=== PATIENT | male | born 1970 | race Caucasian/White ===

== ENCOUNTER → 2018-11-05 | Outpatient (CLI) | payer BC ==
--- NOTE | 2018-11-05 10:10 | US ---
EXAMINATION TYPE: US liver DATE OF EXAM: 11/05/2018 COMPARISON: NONE CLINICAL HISTORY: 48-year-old male R74.8 ABN LIVER ENZYMES. NPO, abnormal labs TECHNIQUE: Multiple sonographic images of the right upper quadrant are obtained. FINDINGS: EXAM MEASUREMENTS: Liver Length: 19.2 cm Gallbladder Wall: 0.2 cm CBD: 0.6 cm Right Kidney: 11.0 x 4.9 x 6.2 cm Pancreas: Tail obscured by overlying bowel gas. Appears echogenic in appearance Liver: Echogenic and attenuating. Appears coarse in appearance. Large and thoracic area of fatty spa ring along the gallbladder fossa. Gallbladder: wnl Evidence for sonographic Ribera's sign: neg CBD: wnl Right Kidney: wnl IMPRESSION: Hepatomegaly (19.2 cm) with at least moderate hepatic steatosis. Large area of geographic fatty spari ng along the gallbladder fossa.
== END | disposition home or self-care (01) ==
LOC: RADUSWWP 09:19
PROVIDERS: ATTEND Internal Medicine
DX: K76.0 Fatty (change of) liver, not elsewhere classified (principal); R16.0 Hepatomegaly, not elsewhere classified
CPT/HCPCS: 76705

== ENCOUNTER → 2020-06-25 | Outpatient (CLI) | payer BC | END | disposition home or self-care (01) | LOC: LABWHC1 15:30 | PROVIDERS: ATTEND Surgery | DX: Z20.822 Contact with and (suspected) exposure to COVID-19 (principal) | CPT/HCPCS: U0003; C9803; U0005 ==

== ENCOUNTER 2020-07-03 09:18 | Day surgery (SDC) | payer BC ==
[2020-06-30 14:44] VITALS: BMI 34.8
[~2020-07-03 09:18] MED LIST: LACTATED RINGERS 1,000 ML IV SCH; LIDOCAINE 1% (10MG/ML) FOR IV START INTRADERMA PRN
[2020-07-03 09:56] VITALS: TEMP 97.1
[2020-07-03] MEDS ORDERED: LIDOCAINE 1% (10MG/ML) FOR IV START INTRADERMA ONE (09:56)
[2020-07-03] MEDS ORDERED: LIDOCAINE 1% INJ 10MG/ML (20 ML MDV) ONE (10:08)
[2020-07-03] MEDS ORDERED: PROPOFOL 10 MG/ML 20 ML VIAL IV ONE (10:08)
--- NOTE | 2020-07-03 10:40 | P.PCN ---
Date of Procedure: 07/03/20 Preoperative Diagnosis: Screening Postoperative Diagnosis: Internal hemorrhoids Procedure(s) Performed: Colonoscopy Anesthesia: MAC Surgeon: Claire Amos Pathology: none sent Condition: stable Disposition: same day Indications for Procedure: 49-year-old male presents today for screening colonoscopy. Risks, benefits and alternatives were provided to the patient. He did provide consent prior to attending the endoscopy suite. Operative Findings: Overall, normal colon Internal hemorrhoids Description of Procedure: The patient was brought to the endoscopy suite and placed in left lateral decubitus position and adequate the patient was achieved using conscious sedation. A digital rectal exam was performed and mild internal hemorrhoids palpated. An endoscope was then placed in the rectum and advanced to the cecum as identified by landmarks including the appendiceal orifice and the ileocecal valve. The prep was good. The colonoscope was then slowly withdrawn, examining for any mucosal abdomen values. The cecum, ascending, transverse, descending and sigmoid colon were visualized adequately. There were no obvious neoplastic lesions throughout the colon. There were no obvious polyps noted throughout the colon. There is no evidence of diverticulosis. Retroflexion was performed in the rectum and internal hemorrhoids were visible. Excess air was removed, the colonoscope withdrawn and the procedure terminated. The patient was then transferred to the recovery unit in stable condition. Repeat colonoscopy should be performed in 8 years
[2020-07-03 11:01] VITALS: BP 128/82; PULSE 72; RESP 20
== END 2020-07-03 11:13 | disposition home or self-care (01) ==
LOC: ORWHC2ENDO 09:18
PROVIDERS: ATTEND Surgery
DX: Z12.11 Encounter for screening for malignant neoplasm of colon (principal); K64.8 Other hemorrhoids; E78.5 Hyperlipidemia, unspecified; Z80.0 Family history of malignant neoplasm of digestive organs; I10 Essential (primary) hypertension; E78.00 Pure hypercholesterolemia, unspecified; Z80.1 Family history of malignant neoplasm of trachea, bronchus and lung; Z79.899 Other long term (current) drug therapy; Z79.82 Long term (current) use of aspirin
CPT/HCPCS: J2001; J2704; G0121; 45378

== ENCOUNTER → 2024-04-16 | Outpatient (CLI) | payer MEDICAID ==
--- NOTE | 2024-04-17 08:44 | MR ---
EXAMINATION TYPE: MR lumbar spine wo con DATE OF EXAM: 04/16/2024 8:47 PM COMPARISON: None. CLINICAL INDICATION: Male, 53 years old with history of M54.16, M54.50, low back pain that radiates d own into both buttocks and back of both thighs TECHNIQUE: Multiplanar, multisequence images of the lumbar spine were acquired. IV Contrast: mL (None, if empty) FINDINGS: Cord ends at the L1-L2 level. L5-S1: No focal disc herniation or significant disc bulge. No spinal canal stenosis. Neural foramen are patent. Facet hypertrophy is present. L4-L5: Central focal bulge is present with mild anterior thecal sac compression. Some central endplat e spurring may be present from L5. Ligamentum flavum laxity is present. Spinal canal narrowing is pre sent through this level. Minimal spondylolisthesis is present with disc uncovering. Small annular tea r may be present. Severe right foraminal stenosis is present. L3-L4: No focal disc herniation or significant disc bulge. No spinal canal stenosis. Neural foramen are patent. L2-L3: No focal disc herniation or significant disc bulge. No spinal canal stenosis. Neural foramen are patent. L1-L2: No focal disc herniation or significant disc bulge. No spinal canal stenosis. Neural foramen are patent. T12-L1: No focal disc herniation or significant disc bulge. No spinal canal stenosis. Neural forame n are patent. IMPRESSION: 1. Minimal grade 1 spondylolisthesis of L4 anteriorly on L5. 2. Some L4-5 disc bulging with some mild central protrusion and possible endplate spurring is mild to moderate anterior thecal sac compression. Annular tear at L4-5 may be present. 3. Severe right foraminal stenosis L4-5. Correlate with radicular symptoms [facility], , 04/17/2024 8:41 AM
== END | disposition home or self-care (01) ==
LOC: RADMRIMAIN 20:15
PROVIDERS: ATTEND Orthopaedic Surgery
DX: M43.16 Spondylolisthesis, lumbar region (principal); M51.16 Intervertebral disc disorders with radiculopathy, lumbar region; M48.061 Spinal stenosis, lumbar region without neurogenic claudication; M99.73 Connective tissue and disc stenosis of intervertebral foramina of lumbar region
CPT/HCPCS: 72148

== ENCOUNTER → 2024-04-25 | Outpatient (CLI) | payer MEDICAID ==
[2024-04-25 12:38] VITALS: BP 164/95; PULSE 79; RESP 16; TEMP 97.1
--- NOTE | 2024-04-25 12:43 | P.PAINCN ---
History of Present Illness - Reason for Consult Consult date: 04/25/24 - History of Present Illness This 53 years old male with a chronic history of severe low back pain with radiation to the lower extremity, patient denies any initiating event patient reported that the pain radiated to the posterior aspect of the lower extremity up to the knee area he denies any numbness or tingling and he denies any fever or night sweats he denies any change in the bowel movement or urination, pain increased with standing position, he was evaluated by Dr. Estrada send and prescribe prednisone and Flexeril, reported that his symptoms improved since he was started on this medication Past Medical History Past Medical History: Hyperlipidemia, Hypertension, Liver Disease Additional Past Medical History / Comment(s): fatty liver, History of Any Multi-Drug Resistant Organisms: None Reported Additional Past Surgical History / Comment(s): lymph node biopsy Past Anesthesia/Blood Transfusion Reactions: No Reported Reaction Smoking Status: Never smoker - Past Family History Father Family Medical History: Cancer Medications and Allergies Home Medications Medication Instructions Recorded Confirmed Type Aspirin [Adult Low Dose Aspirin EC] 81 mg PO HS 06/30/20 07/03/20 History Rosuvastatin Calcium [Crestor] 10 mg PO HS 06/30/20 07/03/20 History lisinopriL [Prinivil] 10 mg PO DAILY 06/30/20 07/03/20 History Allergies Allergy/AdvReac Type Severity Reaction Status Date / Time No Known Allergies Allergy Verified 07/03/20 09:43 Physical Exam Physical Examinations : -Constitutiona : Cooperative , not in acute distress . -HEENT : nech : supple , no Lymphadenopathy , normal thyroid size . : eyes : no ptosis , no icterus, no photophobia . - neurologic : Cranial nerve II to XII intact , no focal neurological deffecit . -psychatric : alert , oriented X 3 , appropriate affect , intact judgment and insight . -Lymphatic : no Lymphadenopathy . - musculoskeltal : Lumber spine moter stegnth lower extremities ,thigh and legs 5/5 Right side , 5/5 Left side deep tendon reflexes : normal Knee Jerk , normal ankle Jerk lumber facet Loading Test = negative right , negative left Range of motion of the lumbar spine Flexion 60 degrees, extension 30 degrees strait leg raising test = negative bilaterally Fabere test= negative right , and n egative LT . Normal sensation in the lower extremity bilaterally Results Comments: MRI of the lumbar spine that showed that patient had central focal bulging disc at L4-5 and there is spinal canal narrowing and there is spondylolisthesis there is small annular tear at L4-5 and severe right foraminal stenosis at L5-S1 this facet joint hypertrophy Assessment and Plan Assessment: Assessment and plan= chronic low back pain secondary to =1-lumbar degenerative disc disease. 2- lumbar spondylosis with lumbar facet arthropathy . 3-Lumbar spinal stenosis, at L4-5, 4- lumbar foraminal stenosis at L4-5 Patient reports that his symptoms improved significantly since he started on the prednisone, and Flexeril Exam today was completely negative for any abnormalities. Because patient had no pain over the last few days, and because the exam was negative completely. I will not schedule patient for any interventions. Option is to reevaluate the patient condition in few weeks, he continued to be pain- free then we do not have to do any interventions, twice will address any pain related issues in the future after reexamining the patient, patient will follow-up with the pain clinic in 2 to 3 weeks Time with Patient: Less than 30 PQRS Measure Charge Sheet Home Medications: Ambulatory Orders Aspirin [Adult Low Dose Aspirin EC] 81 mg PO HS 06/30/20 Rosuvastatin Calcium [Crestor] 10 mg PO HS 06/30/20 lisinopriL [Prinivil] 10 mg PO DAILY 06/30/20
== END ==
LOC: PNWHC3 12:03
PROVIDERS: ATTEND Specialist
DX: M47.816 Spondylosis without myelopathy or radiculopathy, lumbar region (principal); M48.061 Spinal stenosis, lumbar region without neurogenic claudication; M51.360 Other intervertebral disc degeneration, lumbar region with discogenic back pain only; G89.29 Other chronic pain
CPT/HCPCS: 99211

== ENCOUNTER → 2024-05-09 | Outpatient (CLI) | payer MEDICAID ==
[2024-05-09 12:41] VITALS: BP 138/83; PULSE 94; RESP 18; TEMP 97.6
--- NOTE | 2024-05-09 13:14 | P.PAINCN ---
History of Present Illness - History of Present Illness This is a 53-year-old pleasant gentleman has come to pain clinic for low back pain. Patient relates patient started to have low back pain starting about 3 to 4 months back without apparent trauma or fall. Pain is located in low back going down bilaterally to thigh areas up to his knees. Describes his pain as burning in character. Intensity goes up to 8-9/10. Usually standing and extending back makes his pain worse. Sitting for some time makes his pain a little tolerable. Denies any bowel bladder dysfunction. Denies any motor weakness except 1 time for his second he felt his left ankle got weak. Patient also complains of some loss of sensation in his feet bilaterally. Past Medical History Past Medical History: Hyperlipidemia, Hypertension, Liver Disease Additional Past Medical History / Comment(s): fatty liver, History of Any Multi-Drug Resistant Organisms: None Reported Additional Past Surgical History / Comment(s): lymph node biopsy Past Anesthesia/Blood Transfusion Reactions: No Reported Reaction Past Psychological History: No Psychological Hx Reported Smoking Status: Never smoker Past Alcohol Use History: Occasional Past Drug Use History: None Reported - Past Family History Father Family Medical History: Cancer Medications and Allergies Home Medications Medication Instructions Recorded Confirmed Type Aspirin [Adult Low Dose Aspirin EC] 81 mg PO HS 06/30/20 04/25/24 History Rosuvastatin Calcium [Crestor] 10 mg PO HS 06/30/20 04/25/24 History lisinopriL [Prinivil] 10 mg PO DAILY 06/30/20 04/25/24 History Cyclobenzaprine [Flexeril] 5 mg PO TID 04/25/24 04/25/24 History predniSONE [Deltasone] 20 mg PO BID 04/25/24 04/25/24 History Allergies Allergy/AdvReac Type Severity Reaction Status Date / Time No Known Allergies Allergy Verified 07/03/20 09:43 Physical Exam Vitals: Vital Signs Temp Pulse Resp BP Pulse Ox 05/09/24 12:38 97.6 F 94 18 138/83 97 Intake and Output 05/08/24 05/09/24 05/09/24 22:59 06:59 14:59 Other: Weight 120.202 kg Physical Examinations : -Constitutiona : Cooperative , not in acute distress . -HEENT : nech : supple , no Lymphadenopathy , normal thyroid size . : eyes : no ptosis , no icterus, no photophobia . - neurologic : Cranial nerve II to XII intact , no focal neurological deffecit . -psychatric : alert , oriented X 3 , appropriate affect , intact judgment and insight . -Lymphatic : no Lymphadenopathy . - musculoskeltal : Lumber spine moter stegnth lower extremities ,thigh and legs 5/5 Right side , 5/5 Left side deep tendon reflexes : normal Knee Jerk , normal ankle Jerk lumber facet Loading Test =positive Right , positive Left Range of motion of the lumbar spine Flexion 30 degrees, extension 10 degrees strait leg raising test = negative. Assessment and Plan Assessment: 1. Lumbar spine spondylosis L4-5, L5-S1 levels. 2. Grade 1 anterolisthesis L4-5 3. Lumbar radiculopathy. 4. Lumbar spinal stenosis. Plan: Schedule diagnostic lumbar medial branch block targeting the facet joints L4-5 and L5-S1 bilaterally. Discussed with the patient procedure, possible complications which may include infection, bleeding, nerve damage, aggravation of pain all of which could be permanent. Patient understands and all questions were answered. Time with Patient: Greater than 30 PQRS Measure Charge Sheet Mode of Arrival: Ambulatory - Pain Location Lower Back Non-Pharmacological Interventions: Sitting PQRS Narrative: Blood Pressure 138/83 Pain Intensity [Lower Back] 7 Scale Used Numeric (1 - 10) Hx Alcohol Use (MH) No Home Medications: Ambulatory Orders Aspirin [Adult Low Dose Aspirin EC] 81 mg PO HS 06/30/20 Rosuvastatin Calcium [Crestor] 10 mg PO HS 06/30/20 lisinopriL [Prinivil] 10 mg PO DAILY 06/30/20 Cyclobenzaprine [Flexeril] 5 mg PO TID 04/25/24 predniSONE [Deltasone] 20 mg PO BID 04/25/24
== END ==
LOC: PNWHC3 12:13
PROVIDERS: ATTEND Specialist
DX: M47.27 Other spondylosis with radiculopathy, lumbosacral region (principal); M43.16 Spondylolisthesis, lumbar region; M48.061 Spinal stenosis, lumbar region without neurogenic claudication
CPT/HCPCS: 99211

== ENCOUNTER 2024-05-28 12:16 | Day surgery (SDC) | payer MEDICAID ==
[2024-05-24 15:23] VITALS: BMI 36.9
[2024-05-28] MEDS ORDERED: LACTATED RINGERS 1,000 ML IV SCH (12:35)
[2024-05-28 12:37] VITALS: TEMP 97.9
[2024-05-28] MEDS: IV FLUID CONTINUATION 1,000 ML IV ONE (12:44)
[2024-05-28] MEDS ORDERED: fentaNYL (PF) 50 MCG/ML 2 ML AMP ONE (13:13)
[2024-05-28] MEDS ORDERED: MIDAZOLAM 2 MG/2 ML VIAL ONE (13:13)
[2024-05-28] MEDS ORDERED: ROPIVACAINE 5MG/ML 20ML VIAL ONE (13:13)
--- NOTE | 2024-05-28 13:29 | P.PCN ---
Date of Procedure: 05/28/24 Procedure(s) Performed: PREOPERATIVE DIAGNOSIS : 1- Lumbar spondylosis with Facet Arthropathy without myelopathy . 2- Lumber degenerative disc disease POSTOPERATIVE DIAGNOSIS: 1- Lumbar spondylosis with Facet Arthropathy without myelopathy . 2- Lumber degenerative disc disease PROCEDURE: Diagnostic bilateral L3 ,L4 , L5 medial branch block under fluoroscopy guidance(fluoroscopy images available in the radiology Department ) ( To target the facet joint between Bilateral L4-5 , and L5-S1 )#1st ANESTHESIA: moderate sedation with intravenous Versed 2 mg and Fentanyl 50 mcg.(sedation start time 13:13 ,end time 13:24 ) EBL: Minimal COMPLICATION: None PROCEDURE INDICATION: Chronic low back pain secondary to Facet arthropathy unresponsive to conservative treatment. PROCEDURE DESCRIPTION: the patient was seen and identified in the preop holding area , risks and benefits and possible complications of the procedure and alternative were discussed with the patient, and the patient agreed to proceed with the procedure and signed the consent and vital signs monitored during the procedure and fluoroscopy was used to maximize the benefit and accuracy of the needle placement, and sedation was given to decrease patient anxiety, patient was taken to the procedure room and placed in prone position vital signs monitored in the back prepped with chlorhexidine X3 then under strict sterile technique using a right oblique fluoroscopy ,the junction of the transverse process and the superior articulating process of the right L3 , L4 , and L5 vertebra which corresponding to the fluoroscopy image of the eye of the Thomas dog on the block side for the medial branches and subsequently , after local infiltration of skin and subcu tissuies with Ropivacaine 0.5 % , one mL at each level ,then 22-gauge 5 inches long Quincke-type needles , 3 needle was used , each one of them placed at the junction of the base of the transverse process and the superior articular process at the appropriate level, and the needle was advanced until the periosteum contacted, needle placement confirmed with AP oblique and lateral view and after appropriate needle placement confirmed, and after negative aspiration for heme and CSF and there was no paresthesia 1-1/2 mL of Ropivacaine 0.5% , then half mL injected at each level after negative aspiration the needle subsequently removed and the same procedure repeated for the left side at left side at L3 , L4 and L5 levels. At the end of the procedure and the needles removed and a bandage applied after the skin was cleaned the cleaning solution patient taken to recovery room in stable condition and monitors in the recovery room for 20-30 minutes and discharged home in stable condition after discharge criteria met and patient will follow up with the pain clinic in 2-4 weeks
[2024-05-28] MEDS: IV FLUID CONTINUATION 700 ML IV ONE (13:31)
--- NOTE | 2024-05-28 13:40 | FL ---
EXAMINATION TYPE: FL guided pain mgmt statistic DATE OF EXAM: 05/28/2024 CLINICAL INDICATION: Male, 53 years old with history of M54.16 ART LUM FB; [facility], TECHNIQUE: Fluoroscopy. COMPARISON: None. FINDINGS: Fluoroscopic guidance was provided during pain relief procedure performed by Dr. Del Real . A total of 27.8 seconds of fluoroscopic time was utilized during the procedure and 4 spot images a re acquired. Images acquired shows needle localization at several levels in the lower lumbar spine. Mild multilevel degenerative changes are present. Total DAP: 0.86867 mGym2. IMPRESSION: As Above. [facility], , 05/28/2024 1:37 PM
[2024-05-28 13:47] VITALS: BP 113/74; PULSE 83; RESP 14
== END 2024-05-28 14:01 | disposition home or self-care (01) ==
LOC: ORPAIN 12:16
PROVIDERS: ATTEND Specialist
DX: M47.816 Spondylosis without myelopathy or radiculopathy, lumbar region (principal); M51.369 Other intervertebral disc degeneration, lumbar region without mention of lumbar back pain or lower extremity pain
CPT/HCPCS: 64493; 64494; J2250; J3010; J2795; 99152

== ENCOUNTER → 2024-06-05 | Outpatient (CLI) | payer MEDICAID ==
[2024-06-05 09:53] VITALS: BP 134/84; PULSE 73; RESP 19; TEMP 97.5
--- NOTE | 2024-06-05 16:30 | P.PAINPG ---
PQRS Measure Charge Sheet Comment: A 53 yr old male w at side with a history of severe and chronic LBP since Jan 2024 secondary to radiculopathy, spondylosis with facet arthropathy without myelopathy presents today for evaluation s/p BL MBB L4-L5/ L5-S1 #1. Pt states he experienced 85 % pain relief x 48-72 hrs s/p procedure. Pain level is provoked at 9-10 /10 in intensity, constant, predominantly axial, localized in the lumbar spine, throbbing in character without shooting pain. Pain is provoked by standing/ walking for periods > 20 min. Pain is alleviated with injections, physician guided home exercises 4-5 times weekly since late Mar 2024, heat, medications, use of a TENS unit and LSO, manual massage, repositioning and rest. Interventional pain procedures completed include BL MBB L3-L5 x1 Patient is currently on Dover 5/325mg prn, Flexeril, Naproxen Patient denies any side effects of the medication(s), denies excessive d rowsiness or sleepiness, denies suicidal ideation and reports that the current pain medication is helping to control the pain and improve activities of daily living. Patient denies any motor or sensory deficits. Patient denies any fever or night sweats, denies any change in the bowel movements or urination. Physical Examination: -Constitutional: Cooperative. Not in acute distress . - Neurologic: Cranial nerve II to XII intact. No focal neurological deficits. - Psychatric: Alert & oriented x 3. Matching mood & appropriate affect. Judgment and insight intact. - Musculoskeletal: Cervical spine: Muscle bulk/ tone/ strength in the bilateral upper extremities normal Vertebral body tenderness to palpation over Spurling test positive Distraction test positive Facet loading test positive TTP Thoracic spine Muscle bulk / tone/ strength in the bilateral paraspinal muscles normal Vertebral body tender to palpation over Facet loading test positive TTP Lumbar spine: Motor bulk/ tone/ strength lower extremities , thigh and legs : 5/5 Deep tendon reflexes : Normal Knee Jerk. Normal Ankle Jerk . Vertebral body tenderness to palpation over Perrin Test positive Lumbar Facet Loading Test positive Straight Leg Raise: positive at 30 degrees right side/ left side Gaenslen's Test positive Sacral spine : Severe tenderness over the Sacroiliac joint: right side / left side Range of motion: Flexion of the lumbar spine <60 degrees Range of motion: Extension of the lumbar spine <20 degrees Gaenslen's Test positive right side / left side Epi test: positive right side / left side Thigh Thrust Test positive right side / left side Sacral Thrust Test positive right side / left side Assessment and plan: Chronic LBP secondary to lumbar radiculopathy, spondylosis with facet arthropathy without myelopathy Recommendation of BL MBB L4-L5/ L5-S1 #2 and medication management. Risks, benefits of procedure discussed and pt verbalized understanding. Admits to anticoagulant use or medical history of diabetes. Protocol for disconti nuation/ continuation of medications belem procedure discussed. Minimal anesthesia provided, if clinically indicated, consisting of Versed and Fentanyl. All questions answered. Chronic and current use of high-risk medication (Opioids). The patient was counseled about risk of opioid use, psychological risk associated with opioids and was orally counseled to not overuse , divert or sell medications. Pt is to store medication in a safe location. The patient is counseled against driving while using narcotic medications and also not to use alcohol or any illicit recreational drugs. Patient verbalized understanding that the lack of compliance will result in failure to renew narcotic prescription(s) as well as possible discharge from the clinic Diagnoses, prognosis and treatment options including but not limited to physical therapy, surgical interventions, interventional therapies and medication management including narcotics and adjuvant medication were discussed. All patient questions answered . Opiate/ narcotic agreement signed 06/05/24. MAPS reviewed and it was appropriate. Prescription refill for Dover 5/3 25mg #60 w 1 RF. I have spent less than 30 minutes on patient care today. Dr Del Real was available by phone for the evaluation of this patient. The time was used to review the medical records including relevant urine studies and Prescription history (MAPs), review of the available imaging, evaluation and examination of the patient, coordination of care with the medical staff and if applicable [facility] physicians, as well as creation of the medical record - Pain Location Lower Back Non-Pharmacological Interventions: Heat, Inactivity, Position/Reposition PQRS Narrative: Hx Alcohol Use (MH) No Home Medications: Ambulatory Orders Rosuvastatin Calcium [Crestor] 10 mg PO HS 06/30/20 lisinopriL [Prinivil] 10 mg PO DAILY 06/30/20 HYDROcodone/APAP 5-325MG [Dover 5-325] 1 tab PO BID PRN 30 Days #60 tab 06/05/24 HYDROcodone/APAP 5-325MG [Dover 5-325] 1 tab PO BID PRN 30 Days #60 tab 06/05/24 Controlled Substance Measures - Controlled Substance Measures Is patient prescribed a controlled substance at discharge?: Yes When asked, does pt state using other controlled substances?: No If prescribed controlled substance>3 days was MAPS reviewed?: Yes If Rx opioid, was Start Talking consent form obtained?: Yes Was information provided regarding opioid addiction?: Yes
== END ==
LOC: PNWHC3 09:13
PROVIDERS: ATTEND Specialist
DX: M47.26 Other spondylosis with radiculopathy, lumbar region (principal); G89.29 Other chronic pain
CPT/HCPCS: 99211

== ENCOUNTER → 2024-06-20 | Day surgery (SDC) | payer MEDICAID ==
[2024-06-18 12:11] VITALS: BMI 37.2
[~2024-06-20] MED LIST changes: -LACTATED RINGERS 1,000 ML IV SCH; -LIDOCAINE 1% (10MG/ML) FOR IV START INTRADERMA PRN; +MIDAZOLAM 2 MG/2 ML VIAL ONE; +ROPIVACAINE 5 MG/ML 30 ML VIAL ONE; +fentaNYL (PF) 50 MCG/ML 2 ML AMP ONE
[2024-06-20 08:27] VITALS: TEMP 97.6
[2024-06-20] MEDS: IV FLUID CONTINUATION 1,000 ML IV ONE (08:36)
[2024-06-20] MEDS: LACTATED RINGERS 1,000 ML IV SCH (08:37)
[2024-06-20] MEDS: IV FLUID CONTINUATION 600 ML IV ONE (09:16)
--- NOTE | 2024-06-20 09:21 | P.PCN ---
Description of Procedure: Preprocedure diagnosis. 1. Lumbar spondylosis with facet joint arthropathy without myelopathy. 2. Lumbar degenerative disc disease. Postprocedure diagnosis. As above. Procedure done. Bilateral/Right/Left diagnostic block with local anesthetics at L3, L4, L5 medial branch to target the facet joint L4- 5 and L5-S1 with fluorosc opic guidance (fluoroscopy images are available in the radiology department) . Anesthesia. Moderate sedation with intravenous Versed 2 mg and fentanyl 50 microgram and local infiltration with local anesthetics. In OR, continuous pulse ox, EKG, blood pressure and verbal communication was maintained. Sedation time-start 08 end 09 . Blood loss. Minimal. Indication. The patient has low back pain secondary to lumbar facet joint arthropathy. Discussed the procedure and alternative and complications which includes infection, bleeding, nerve damage, paralysis ,aggravation of pain. Patient understands and all questions were answered. Patient iunderstands that if any pain relief occurs it will last for a few hours to a few days maximum. Procedure description. After getting consent patient was taken in the OR in prone position. Back prepped with chlorhexidine and draped in sterile fashion. After injecting 5 mL of plain 1% lidocaine subcutaneously, a 22-gauge spinal needle was introduced under tunnel vision of the fluoroscope at the junction of the superior articular process with RIGHT ala of the sacrum. With slight oblique fluoroscope, after injecting 5 mL of plain 1% lidocaine subcutaneously, a 22-gauge spinal needle was introduced under tunnel vision of the fluoroscope at the junction of the superior articular process with RIGHT L5 transverse process, junction of the superior articular process with the RIGHT L4 transverse process. Negative CSF, negative blood, negative paresthesia. After needle position confirmation by AP and crosstable lateral view, after negative aspiration, half milliliters of solution were injected at each point. Total 1- 1/2 mL of solution was injected on the right side which consists of 0.5% ropivacaine. In exactly same way, LEFT sided injections were done at the following 3 points. Junction of the superior articular process with left ala of the sacrum, junction of the superior articular process with the left L5 transverse process, junction of the superior articular process with left L4 transverse process using 0.5 mL of solution at each point. Total 1-1/2 mL of solution was injected on the left side which consists of 0.5% ropivacaine . Spinal needles were taken out and bandages were applied. Disposition. Patient tolerated the procedure well. No complication. Discharged home in stable condition
--- NOTE | 2024-06-20 09:42 | FL ---
EXAMINATION TYPE: FL guided pain mgmt statistic DATE OF EXAM: 06/20/2024 FLUOROSCOPY FLUOR TIME 48 SEC DAP [id number] Bilateral FACET BLOCK L-SPINE 4 images are submitted. [facility], , 06/20/2024 9:39 AM
[2024-06-20 09:44] VITALS: BP 109/71; PULSE 80; RESP 16
== END ==
LOC: ORPAIN 08:01
PROVIDERS: ATTEND Pain Medicine Interventional Pain Medicine
DX: M47.816 Spondylosis without myelopathy or radiculopathy, lumbar region (principal); M51.369 Other intervertebral disc degeneration, lumbar region without mention of lumbar back pain or lower extremity pain
CPT/HCPCS: 64493; 64494; J2250; J3010; J2795; 99152

== ENCOUNTER → 2024-07-11 | Outpatient (CLI) | payer MEDICAID ==
[2024-07-11 11:06] VITALS: BP 147/76; PULSE 83; RESP 16; TEMP 97.3
--- NOTE | 2024-07-11 16:56 | P.PAINPG ---
Objective - Vital Signs Vital signs: Vital Signs Temp 97.3 F L 07/11/24 10:55 Pulse 83 07/11/24 10:55 Resp 16 07/11/24 10:55 BP 147/76 07/11/24 10:55 Pulse Ox 96 07/11/24 10:55 FiO2 Intake & Output 07/10/24 07/11/24 07/11/24 18:59 06:59 18:59 Weight 120.202 kg PQRS Measure Charge Sheet Mode of Arrival: Ambulatory Comment: A 53 yr old male w at side with a history of severe and chronic LBP since Jan 2024 secondary to radiculopathy, spondylosis with facet arthropathy without myelopathy presents today for evaluation s/p BL MBB L4-L5/ L5-S1 #2. Pt states he experienced 100 % pain relief x 24 hrs s/p procedure. Pain level is provoked at 8 /10 in intensity, constant, predominantly axial, localized in the lumbar spine, throbbing in character without shooting pain. Pain is provoked by standing/ walking for periods > 20 min. Pain is alleviated with injections, physician guided home exercises 4-5 times weekly since late Mar 2024, heat, medications, use of a TENS unit and LSO, manual massage, repositioning and rest. States [place] is ineffective, no longer taking, and that Lyrica works better. Interventional pain procedures completed include BL MBB L3-L5 x2 Patient is currently on [place] 5/325mg prn, Flexeril, Naproxen Patient denies any side effects of the medication(s), denies excessive drowsiness or sleepiness, denies suicidal ideation and reports that the current pain medication is helping to control the pain and improve activities of daily living. Patient denies any motor or sensory deficits. Patient denies any fever or night sweats, denies any change in the bowel movements or urination. Physical Examination: -Constitutional: Cooperative. Not in acute distress . - Neurologic: Cranial nerve II to XII intact. No focal neurological deficits. - Psychatric: Alert & oriented x 3. Matching mood & appropriate affect. Judgment and insight intact. - Musculoskeletal: Cervical spine: Muscle bulk/ tone/ strength in the bilateral upper extremities normal Vertebral body tenderness to palpation over Spurling test positive Distraction test positive Facet loading test positive TTP Thoracic spine Muscle bulk / tone/ strength in the bilateral paraspinal muscles normal Vertebral body tender to palpation over Facet loading test positive TTP Lumbar spine: Motor bulk/ tone/ strength lower extremities , thigh and legs : 5/5 Deep tendon reflexes : Normal Knee Jerk. Normal Ankle Jerk . Vertebral body tenderness to palpation over Perrin Test positive Lumbar Facet Loading Test positive L4-L5/ L5-S1 Straight Leg Raise: positive at 30 degrees right side/ left side Gaenslen's Test positive Sacral spine : Severe tenderness over the Sacroiliac joint: right side / left side Range of motion: Flexion of the lumbar spine <60 degrees Range of motion: Extension of the lumbar spine <20 degrees Gaenslen's Test positive right side / left side Epi test: positive right side / left side Thigh Thrust Test positive right side / left side Sacral Thrust Test positive right side / left side Assessment and plan: Chronic LBP secondary to lumbar radiculopathy, spondylosis with facet arthropathy without myelopathy Recommendation of BL RFA L4-L5/ L5-S1 and medication management. Risks, benefits of procedure discussed and pt verbalized understanding. Admits to anticoagulant use or medical history of diabetes. Protocol for discontinuation/ continuation of medications belem procedure discussed. Minimal anesthesia provided, if clinically indicated, consisting of Versed and Fentanyl. All questions answered. Chronic and current use of high-risk medication (Opioids). The patient was counseled about risk of opioid use, psychological risk associated with opioids and was orally counseled to not overuse , divert or sell medications. Pt is to store medication in a safe location. The patient is counseled against driving while using narcotic medications and also not to use alcohol or any illicit recreational drugs. Patient verbalized understanding that the lack of compliance will result in failure to renew narcotic prescription(s) as well as possible discharge from the clinic Diagnoses, prognosis and treatment options including but not limited to physical therapy, surgical interventions, interventional therapies and medication management including narcotics and adjuvant medication were discussed. All patient questions answered . Opiate/ narcotic agreement signed 06/05/24. MAPS reviewed and it was appropriate. Ample supply of [place] 5/325mg #60 that he no longer takes. I have spent less than 30 minutes on patient care today. Dr Del Real was available by phone for the evaluation of this patient. The time was used to review the medical records including relevant urine studies and Prescription history (MAPs), review of the available imaging, evaluation and examination of the patient, coordination of care with the medical staff and if applicable referring physicians, as well as creation of the medical record - Pain Location Bilateral Lower Back Non-Pharmacological Interventions: Elevation, Exercise, Heat, Home Exercise, Ice, Inactivity, Position/Reposition, Relaxation Technique, Sitting, Stretching Pharmacological Interventions: Block, Epidural, PRN Medication, Scheduled Medication PQRS Narrative: Blood Pressure 147/76 Pain Intensity [Bilateral 8 Lower Back] Scale Used Numeric (1 - 10) Hx Alcohol Use (MH) No Home Medications: Ambulatory Orders Rosuvastatin Calcium [Crestor] 10 mg PO HS 06/30/20 lisinopriL [Prinivil] 10 mg PO DAILY 06/30/20 Pregabalin [Lyrica] 150 mg PO BID 06/18/24 Controlled Substance Measures - Controlled Substance Measures Is patient prescribed a controlled substance at discharge?: No
== END ==
LOC: PNWHC3 10:49
PROVIDERS: ATTEND Specialist
DX: M47.26 Other spondylosis with radiculopathy, lumbar region (principal); G89.29 Other chronic pain
CPT/HCPCS: 99211

== ENCOUNTER 2024-08-02 09:27 | Day surgery (SDC) | payer MEDICAID ==
[2024-08-02 10:53] VITALS: TEMP 96.8
[2024-08-02] MEDS: IV FLUID CONTINUATION 1,000 ML IV ONE ×2 (10:53→12:25)
[2024-08-02] MEDS: LACTATED RINGERS 1,000 ML IV SCH (10:53)
[2024-08-02] MEDS ORDERED: ROPIVACAINE 5 MG/ML 30 ML VIAL ONE (11:42)
[2024-08-02] MEDS ORDERED: MIDAZOLAM 2 MG/2 ML VIAL ONE (11:42)
[2024-08-02] MEDS ORDERED: fentaNYL (PF) 50 MCG/ML 2 ML AMP ONE (11:42)
--- NOTE | 2024-08-02 12:25 | P.PCN ---
Description of Procedure: Preprocedure diagnosis. 1. Lumbar spondylosis with facet joint arthropathy without myelopathy. 2. Lumbar degenerative disc disease. Procedure diagnosis. 1. Lumbar spondylosis with facet joint arthropathy without myelopathy. Space 2. Lumbar degenerative disc disease. Procedure.Bilateral radiofrequency thermocoagulation L3, L4 and L5 medial branch, with fluoroscopic guidance (fluoroscopy images are available in the radiology department) (to Denervate the facet joint at bilateral L4- 5 and L5-S1 levels) Anesthesia. Moderate sedation with intravenous Versed 2 mg and fentanyl 100 g and local infiltration with Lidocaine. Continuous pulse OX,BP,EKG and verbal communication was maintained with patient. Time. Start 1142. [id number] . EBL minimal. Procedure indication. The patient with low back pain secondary to lumbar facet arthropathy who he had more than 50% relief of her pain with previous diagnostic lumbar medial branch block with local anesthetics.The patient was seen and identified in the preoperative area. Risks: Benefits, complications, including but not limited to risk of infection, bleeding, ALLERGIC reaction to the medications and no complete pain relief and alternatives were discussed with the patient, the patient admitted to proceed with the procedure and signed the consent. Procedure description/technique. Patient was taken to the OR and timeout was completed. The patient was placed in prone position on the procedure table. The lumbar area was prepped and draped in the usual sterile fashion. After injecting 5 ml of 1% Lidocaine subcutaneously,using AP and then oblique, lateral view of fluoroscopy, 18-gauge 100 mm radiofrequency cannula with a 10 mm active tip was advanced and guided by fluoroscopy at the junction of supirior articular process with RIGHT ala of the sacrum, transverse process of L4&L5. Each site then underwent positive sensory testing with 50 Hz and 0-1 V and negative motor testing at 2.5 Hz and 0-3 V with local stimulation but no radicular symptoms down the leg. Thereafter each sites underwent radiofrequency thermocoagulation at 80C for 90 seconds after injecting 1 mL of preservative- free 0.5% ropivacaine. Repeat radiofrequency ablation was done at each points after rotating the needle 180 with same setting. This same procedure was repeated twice on the LEFT side at the junction of superior articular process with ala of sacrum,transverse process of L4, L5 with the same settings after positive sensory,negative motor stimulation and inf iltration of 1.0 ml 5% Ropivacaine at each site . RF needles were taken out. At the end of the procedure the skin was cleansed and Band-Aids were applied. Disposition patient tolerated the procedure well. No complication. She was placed in supine position and transferred to the recovery area in stable condition for observation and was discharged home from recovery room after meeting discharge criteria. Discharge instructions given to the patient by the staff. The patient were examined prior to discharge the patient will schedule a follow-up in the clinic in 2-4 weeks.
[2024-08-02 12:41] VITALS: BP 121/68; PULSE 71; RESP 16
--- NOTE | 2024-08-02 12:45 | FL ---
EXAMINATION TYPE: FL guided pain mgmt statistic DATE OF EXAM: 08/02/2024 12:16 PM COMPARISON: Pre Operative Images if available both CT/MRI or plain film CLINICAL INDICATION: Male, 54 years old with history of PAIN; TECHNIQUE: FL guided pain mgmt statistic, multiple fluoroscopic images provided for procedure. DAP: 0.71938 mGym2 Gycm2 uGym2 cGycm2 or equivalent. FINDINGS: Fluoroscopic images during injection for pain management demonstrate multilevel degeneration changes throughout the spine. No evidence for fracture. No acute process identified. IMPRESSION: 1. No evidence for intraoperative complication. 2. Please see the operative/procedural note for further details. [facility], , 08/02/2024 12:43 PM
== END 2024-08-02 13:02 | disposition home or self-care (01) ==
LOC: ORPAIN 09:27
PROVIDERS: ATTEND Pain Medicine Interventional Pain Medicine
DX: M47.816 Spondylosis without myelopathy or radiculopathy, lumbar region (principal); M51.369 Other intervertebral disc degeneration, lumbar region without mention of lumbar back pain or lower extremity pain
CPT/HCPCS: 64635; 64636; J2250; J3010; J2795; 99152

== ENCOUNTER → 2024-08-26 | Outpatient (CLI) | payer MEDICAID ==
[2024-08-26 12:29] VITALS: BP 120/80; PULSE 74
[2024-08-26 12:40] VITALS: RESP 16
--- NOTE | 2024-08-26 14:39 | P.PAINPG ---
Objective - Vital Signs Vital signs: Vital Signs Temp Pulse 74 08/26/24 12:20 Resp BP 120/80 08/26/24 12:20 Pulse Ox 95 08/26/24 12:20 FiO2 Intake & Output 08/25/24 08/26/24 08/26/24 18:59 06:59 18:59 Weight 120.202 kg PQRS Measure Charge Sheet Mode of Arrival: Ambulatory Comment: A 54 yr old male w at side with a history of severe and chronic LBP since Jan 2024 secondary to radiculopathy, spondylosis with facet arthropathy without myelopathy presents today for evaluation s/p BL RFA L4-L5/ L5-S1. Pt states he experienced 85 % pain relief s/p procedure. Pain level is provoked at 2-4 /10 in intensity, constant, predominantly axial, localized in the lumbar spine, throbbing in character without shooting pain. Pain is provoked by standing/ walking for periods > 20 min. Pain is alleviated with injections, physician guided home exercises 4-5 times weekly since late Mar 2024, heat, medications, use of a TENS unit and LSO, manual massage, repositioning and rest. States [place] is ineffective, no longer taking, and that Lyrica works better. Interventional pain procedures completed include BL RFA L3-L5 (08/02/24) Patient is currently on [place] 5/325mg prn, Flexeril, Naproxen Patient denies any side effects of the medication(s), denies excessive drowsiness or sleepiness, denies suicidal ideation and reports that the current pain medication is helping to control the pain and improve activities of daily living. Patient denies any motor or sensory deficits. Patient denies any fever or night sweats, denies any change in the bowel movements or urination. Physical Examination: -Constitutional: Cooperative. Not in acute distress . - Neurologic: Cranial nerve II to XII intact. No focal neurological deficits. - Psychatric: Alert & oriented x 3. Matching mood & appropriate affect. J udgment and insight intact. - Musculoskeletal: Cervical spine: Muscle bulk/ tone/ strength in the bilateral upper extremities normal Vertebral body tenderness to palpation over Spurling test positive Distraction test positive Facet loading test positive TTP Thoracic spine Muscle bulk / tone/ strength in the bilateral paraspinal muscles normal Vertebral body tender to palpation over Facet loading test positive TTP Lumbar spine: Motor bulk/ tone/ strength lower extremities , thigh and legs : 5/5 Deep tendon reflexes : Normal Knee Jerk. Normal Ankle Jerk . Vertebral body tenderness to palpation over Perrin Test positive Lumbar Facet Loading Test positive L4-L5/ L5-S1 Straight Leg Raise: positive at 30 degrees right side/ left side Gaenslen's Test positive Sacral spine : Severe tenderness over the Sacroiliac joint: right side / left side Range of motion: Flexion of the lumbar spine <60 degrees Range of motion: Extension of the lumbar spine <20 degrees Gaenslen's Test positive right side / left side Epi test: positive right side / left side Thigh Thrust Test positive right side / left side Sacral Thrust Test positive right side / left side Assessment and plan: Chronic LBP secondary to lumbar radiculopathy, spondylosis with facet arthropathy without myelopathy Will manage residual pain and may RTC on an as needed basis. All questions answered. Chronic and current use of high-risk medication (Opioids). The patient was counseled about risk of opioid use, psychological risk associated with opioids and was orally counseled to not overuse , divert or sell medications. Pt is to store medication in a safe location. The patient is counseled against driving while using narcotic medications and also not to use alcohol or any illicit recreational drugs. Patient verbalized understanding that the lack of compliance will result in failure to renew narcotic prescription(s) as well as possible discharge from the clinic Diagnoses, prognosis and treatment options including but not limited to physical therapy, surgical interventions, interventional therapies and medication management including narcotics and adjuvant medication were discussed. All patient questions answered . Opiate/ narcotic agreement signed 06/05/24. MAPS reviewed and it was appropriate. Ample supply of [place] 5/325mg #60 that he no longer takes. I have spent less than 30 minutes on patient care today. Dr Del Real was available by phone for the evaluation of this patient. The time was used to review the medical records including relevant urine studies and Prescription history (MAPs), review of the available imaging, evaluation and examination of the patient, coordination of care with the medical staff and if applicable referring physicians, as well as creation of the medical record - Pain Location Bilateral Lower Back Non-Pharmacological Interventions: Heat, Home Exercise, Stretching, TENS Unit Pharmacological Interventions: Epidural PQRS Narrative: Blood Pressure 120/80 Pain Intensity [Bilateral 4 Lower Back] Scale Used Numeric (1 - 10) Hx Alcohol Use (MH) No Home Medications: Ambulatory Orders Rosuvastatin Calcium [Crestor] 10 mg PO HS 06/30/20 lisinopriL [Prinivil] 10 mg PO DAILY 06/30/20 Pregabalin [Lyrica] 150 mg PO BID 06/18/24 Naproxen Sodium [Aleve] 220 mg PO DAILY PRN 08/02/24 Controlled Substance Measures - Controlled Substance Measures Is patient prescribed a controlled substance at discharge?: No
== END ==
LOC: PNWHC3 12:16
PROVIDERS: ATTEND Specialist
DX: M47.26 Other spondylosis with radiculopathy, lumbar region (principal)
CPT/HCPCS: 99211